=== PATIENT | female | born 1985 | race Caucasian/White ===

== ENCOUNTER 2019-02-13 18:00 | Inpatient (IN) | payer BC, OTHER ==
[~2019-02-13] VITALS: Ht 167.6 cm; Wt 71.4 kg
[~2019-02-13 18:00] MED LIST: NAPR375T PO
[2019-02-13 18:27] LABS: COLOR,URINE YELLOW (Yellow); GLUCOSE, URINE NEGATIVE (Neg); KETONES,URINE NEGATIVE (Neg); LEUKOCYTE ESTERASE ,URINE NEGATIVE (Neg); NITRITES, URINE NEGATIVE (Neg); OCCULT BLOOD,URINE LARGE (Neg); PROTEIN,URINE 100 mg/dl (Neg); UROBILINOGEN,URINE 0.2 E.U/dL (0.2-1.0)
[2019-02-13 18:29] LABS: CLARITY,URINE SLIGHTLY CLOUDY (Clear); UA COLLECTION TYPE VOIDED
[2019-02-13 18:36] LABS: BACTERIA,URINE 1+ /HPF (Neg); HYALINE CASTS 0-3 /LPF (NEGATIVE); MUCUS STRANDS MODERATE /LPF (Neg); RBC,URINE 0-2 /HPF (0-2); SQUAMOUS EPITHELIAL CELL,UR MODERATE /LPF (FEW); WBC,URINE 0-4 /HPF (0-4)
[2019-02-13 18:40] LABS: BASOPHILS % (AUTO) 0.3 % (0-1); EOSINOPHILS # (AUTO) 0.1 X10'3 (0-0.9); EOSINOPHILS % (AUTO) 0.3 % (0-6); HEMATOCRIT 44.6 % (35.0-45.0); LYMPHOCYTES # (AUTO) 1.3 X10'3 (1.1-4.8); LYMPHOCYTES % (AUTO) 8.1 % (21-51); MEAN CORPUSCULAR HGB CONC 33.6 g/dL (33.0-36.5); MEAN CORPUSCULAR VOLUME 86.6 FL (78-98); MEAN PLATELET VOLUME 9.3 FL (7.4-10.4); MONOCYTES % (AUTO) 6.3 % (2-12); NEUTROPHILS # (AUTO) 13.5 X10'3 (1.8-7.7); PLATELET COUNT 235 X10'3 (140-440); RED BLOOD COUNT 5.15 X10'6 (4.20-5.60); RED CELL DISTRIBUTION WIDTH 13.1 % (11.5-14.5); WHITE BLOOD COUNT 15.9 X10'3 (4.5-11.0)
[2019-02-13 18:42] LABS: URINE HCG NEGATIVE (NEG)
[2019-02-13 18:52] LABS: INR 1.1 INR
[2019-02-13 18:54] LABS: ALANINE AMINOTRANSFERASE 63 U/L (12-78); ALBUMIN 3.6 G/DL (3.4-5.0); ALBUMIN/GLOBULIN RATIO 0.9 (1.1-1.5); ALKALINE PHOSPHATASE 150 IU/L (46-116); ANION GAP 9 (8-16); ASPARTATE AMINO TRANSFERASE 28 U/L (10-37); BILIRUBIN,TOTAL 0.5 MG/DL (0.1-1.0); BLOOD UREA NITROGEN 7 MG/DL (7-18); BUN/CREATININE RATIO 8.6 (6.6-38.0); CALCIUM 8.9 MG/DL (8.5-10.1); CHLORIDE 101 MMOL/L (99-107); CREATININE 0.81 MG/DL (0.40-0.90); GLUCOSE 104 MG/DL (70-104); SODIUM 136 MMOL/L (135-145); TOTAL CARBON DIOXIDE 26.2 MMOL/L (24-32); TOTAL PROTEIN 7.6 G/DL (6.4-8.2); eGFR 81 ML/MIN
[2019-02-13] MEDS ORDERED: acetaminophen 325mg tablet PO ONE (19:00)
[2019-02-13 19:03] LABS: POTASSIUM 2.8 MMOL/L (3.5-5.1)
[2019-02-13 19:12] LABS: TOTAL CELLS COUNTED 100
[2019-02-13 19:13] LABS: PLATELET ESTIMATE NORMAL
[2019-02-13] MEDS ORDERED: normal saline 1000ML IV soln IVB ONE ×2 (20:00→21:50)
[2019-02-13] MEDS ORDERED: potassium 10mEq/100ml NS w/LIDOcaine (10mg/bag) IV ONE ×2 (20:05→21:50)
[2019-02-13] MEDS ORDERED: magnesium 2GM in 50ml NS 50 ML IV ONE (20:05)
[2019-02-13] MEDS ORDERED: potassium Cl 20 mEq SR tablet PO ONE (20:05)
[2019-02-13 20:43] LABS: MAGNESIUM 1.6 MG/DL (1.5-2.4)
[2019-02-13] MEDS ORDERED: temazepam 15mg capsule PO PRN (21:00)
[2019-02-13] MEDS ORDERED: piperacillin/tazo 3.375gm/50ml 50 ML IV ONE (21:45)
[2019-02-13] MEDS ORDERED: HYDR25LI (22:06)
[2019-02-13] MEDS ORDERED: HYDR12.5 PO (22:06)
--- NOTE | 2019-02-13 22:08 | NUR ---
POTASSIUM IS NOT SCANNABLE.
[2019-02-13] MEDS ORDERED: metroNIDAZOLE-Flagyl 500mg/NS 100 ML IV ONE (22:20)
[2019-02-13] MEDS ORDERED: magnesium 4gm in 100ml NS 100 ML IV PRN (23:00)
[2019-02-13] MEDS ORDERED: mag hydrox/Alum hydrox/simeth 30ml oral suspension PO PRN (23:00)
[2019-02-13] MEDS ORDERED: potassium Cl 40MEQ/NS 500ml 500 ML IV PRN ×2 (23:00)
[2019-02-13] MEDS ORDERED: HYDROcodone/acetaminophen 5mg/325mg tablet PO PRN (23:00)
[2019-02-13] MEDS ORDERED: potassium Cl 20 mEq SR tablet PO PRN (23:00)
[2019-02-13] MEDS ORDERED: magnesium Cl slow-release 64mg tablet PO PRN (23:00)
[2019-02-13] MEDS ORDERED: magnesium hydroxide 30ml (MOM) UD suspension PO PRN (23:00)
[2019-02-13] MEDS ORDERED: acetaminophen 325mg tablet PO PRN (23:00)
[2019-02-13] MEDS ORDERED: magnesium 2GM in 50ml NS 50 ML IV PRN (23:00)
[2019-02-13] MEDS ORDERED: ondansetron/PF 4mg/2ml inj IV PRN (23:00)
[2019-02-14 00:30] VITALS: BP 135/88
--- NOTE | 2019-02-14 00:30 | NUR ---
Received report from Maria Del Rosario CAPUTO from ED. Patient received via [facility]. Bed locked & low, call light within reach.
[2019-02-14] MEDS: potassium Cl 20 mEq SR tablet PO PRN ×2 (00:43→04:13)
[2019-02-14] MEDS: acetaminophen 325mg tablet PO PRN ×2 (00:43→07:24)
[2019-02-14] MEDS: normal saline 1000ml 1,000 ML IV SCH ×4 (00:44→23:12)
[2019-02-14 05:00] VITALS: BP 116/65
--- NOTE | 2019-02-14 06:10 | NUR ---
Problems reprioritized. Patient report given, questions answered & plan of care reviewed with Linnea CAPUTO.
[2019-02-14] MEDS: metroNIDAZOLE-Flagyl 500mg/NS 100 ML IV SCH ×3 (07:25→16:02)
[2019-02-14] MEDS: HYDROchlorothiazide 12.5mg capsule PO SCH (07:25)
[2019-02-14 07:37] LABS: BASOPHILS % (AUTO) 0.2 % (0-1); EOSINOPHILS % (AUTO) 0.1 % (0-6); HEMATOCRIT 40.5 % (35.0-45.0); HEMOGLOBIN 13.6 g/dl (12.0-16.0); LYMPHOCYTES # (AUTO) 1.1 X10'3 (1.1-4.8); LYMPHOCYTES % (AUTO) 8.4 % (21-51); MEAN CORPUSCULAR HEMOGLOBIN 29.5 PG (27.0-31.0); MEAN CORPUSCULAR HGB CONC 33.6 g/dL (33.0-36.5); MEAN CORPUSCULAR VOLUME 87.6 FL (78-98); MEAN PLATELET VOLUME 9.3 FL (7.4-10.4); MONOCYTES # (AUTO) 0.8 X10'3 (0-0.9); MONOCYTES % (AUTO) 6.1 % (2-12); NEUTROPHILS % (AUTO) 85.2 % (42-75); PLATELET COUNT 199 X10'3 (140-440); RED BLOOD COUNT 4.63 X10'6 (4.20-5.60); RED CELL DISTRIBUTION WIDTH 13.4 % (11.5-14.5); WHITE BLOOD COUNT 12.9 X10'3 (4.5-11.0)
[2019-02-14 07:52] LABS: ALBUMIN 2.9 G/DL (3.4-5.0); ANION GAP 9 (8-16); BLOOD UREA NITROGEN 4 MG/DL (7-18); BUN/CREATININE RATIO 5.6 (6.6-38.0); CALCIUM 8.4 MG/DL (8.5-10.1); CHLORIDE 106 MMOL/L (99-107); CREATININE 0.72 MG/DL (0.40-0.90); GLUCOSE 111 MG/DL (70-104); POTASSIUM 3.9 MMOL/L (3.5-5.1); SODIUM 138 MMOL/L (135-145); TOTAL CARBON DIOXIDE 23.4 MMOL/L (24-32); eGFR > 90 ML/MIN
[2019-02-14 07:59] LABS: MAGNESIUM 1.9 MG/DL (1.5-2.4)
[2019-02-14] MEDS: K and/or MAG REPLACEMENT MC SCH (08:00)
[2019-02-14] MEDS: levoFLOXACIN-Levaquin 500mg/D5 100 ML IV SCH (08:54)
[2019-02-14 10:00] VITALS: BP 98/46
[2019-02-14 10:01] LABS: C DIFF ANTIGEN NEGATIVE (NEGATIVE); C DIFF SPECIMEN=DIARRHEA? ACCEPTABLE; C DIFFICILE TOXINS A&B NEGATIVE (Neg)
[2019-02-14 19:20] VITALS: BP 105/59
[2019-02-14] MEDS: lactobacillus rhamnosus 10,000 MMU CELLS/CAPSULE PO SCH (20:02)
[2019-02-14 23:00] VITALS: BP 102/62
[2019-02-15] MEDS: metroNIDAZOLE-Flagyl 500mg/NS 100 ML IV SCH ×2 (00:08→07:55)
--- NOTE | 2019-02-15 04:59 | NUR ---
PT IS VOIDING NORMALLY AND STILL HAVING LOOSE BM'S Addendum: 02/15/19 at 0500 by Israel Huber RN Amended: Links added.
[2019-02-15 05:22] LABS: BASOPHILS % (AUTO) 0.3 % (0-1); EOSINOPHILS # (AUTO) 0.4 X10'3 (0-0.9); EOSINOPHILS % (AUTO) 4.3 % (0-6); HEMATOCRIT 36.7 % (35.0-45.0); HEMOGLOBIN 12.3 g/dl (12.0-16.0); LYMPHOCYTES # (AUTO) 2.4 X10'3 (1.1-4.8); LYMPHOCYTES % (AUTO) 27.6 % (21-51); MEAN CORPUSCULAR HEMOGLOBIN 29.4 PG (27.0-31.0); MEAN CORPUSCULAR HGB CONC 33.7 g/dL (33.0-36.5); MEAN CORPUSCULAR VOLUME 87.4 FL (78-98); MEAN PLATELET VOLUME 9.4 FL (7.4-10.4); MONOCYTES # (AUTO) 0.8 X10'3 (0-0.9); NEUTROPHILS % (AUTO) 58.8 % (42-75); PLATELET COUNT 183 X10'3 (140-440); RED BLOOD COUNT 4.19 X10'6 (4.20-5.60); WHITE BLOOD COUNT 8.5 X10'3 (4.5-11.0)
[2019-02-15 05:35] LABS: ALBUMIN 2.6 G/DL (3.4-5.0); ANION GAP 7 (8-16); BLOOD UREA NITROGEN 5 MG/DL (7-18); BUN/CREATININE RATIO 6.9 (6.6-38.0); CALCIUM 8.5 MG/DL (8.5-10.1); CHLORIDE 112 MMOL/L (99-107); CREATININE 0.72 MG/DL (0.40-0.90); GLUCOSE 102 MG/DL (70-104); MAGNESIUM 1.9 MG/DL (1.5-2.4); POTASSIUM 3.8 MMOL/L (3.5-5.1); SODIUM 142 MMOL/L (135-145); TOTAL CARBON DIOXIDE 23.3 MMOL/L (24-32); eGFR > 90 ML/MIN
--- NOTE | 2019-02-15 06:28 | NUR ---
Problems reprioritized. Patient report given, questions answered & plan of care reviewed with NATALIE PEREZ RN. Addendum: 02/15/19 at 0628 by Israel Huber RN Amended: Links added.
--- NOTE | 2019-02-15 06:43 | NUR ---
RECEIVED REPORT FROM MARTA CAPUTO
[2019-02-15 06:56] VITALS: BP 101/56
[2019-02-15] MEDS: HYDROchlorothiazide 12.5mg capsule PO SCH (07:52)
[2019-02-15] MEDS: lactobacillus rhamnosus 10,000 MMU CELLS/CAPSULE PO SCH (07:54)
[2019-02-15] MEDS: K and/or MAG REPLACEMENT MC SCH (08:00)
[2019-02-15] MEDS: levoFLOXACIN-Levaquin 500mg/D5 100 ML IV SCH (09:15)
[2019-02-15] MEDS ORDERED: METR-159 PO (10:09)
[2019-02-15] MEDS ORDERED: CIPR-230 PO (10:09)
--- NOTE | 2019-02-15 11:27 | NUR ---
patient was discharged Iv and tele was removed from patient. Patient was alert and oriented at time of discharge. patient was following up with dr. hamilton.
== END 2019-02-15 11:20 | disposition home or self-care (01) | DRG 373 ==
LOC: ER 18:02 → ORTHO 4S 02-14 00:38 → CMPBEDREQ 02-14 00:47
PROVIDERS: ADMIT Hospitalist; ATTEND Internal Medicine
DX: A04.9 Bacterial intestinal infection, unspecified (principal); E87.6 Hypokalemia; K59.00 Constipation, unspecified; Z79.899 Other long term (current) drug therapy; Z87.442 Personal history of urinary calculi
CPT/HCPCS: 36415; 74176; 80048; 80053; 81001; 81025; 83605; 83735; 85025; 85610; 87040; 87070; 87324; 87449; 96365; 96367; 99285; G0378; J1956; J2543; J3475; J3480; J3490; J7030

== ENCOUNTER 2019-11-27 02:29 | Emergency (ER) | payer BC ==
[~2019-11-27] VITALS: Ht 167.6 cm; Wt 69.5 kg
[~2019-11-27 02:29] MED LIST changes: +HYDR12.5 PO; -NAPR375T PO
[2019-11-27] MEDS ORDERED: morphine 4 MG/ML inj SYRINge IV PRN (02:50)
[2019-11-27] MEDS ORDERED: normal saline 1000ML IV soln IVB ONE ×2 (02:50→04:55)
[2019-11-27] MEDS ORDERED: ondansetron/PF 4mg/2ml inj IV ONE (02:50)
--- NOTE | 2019-11-27 03:12 | NUR ---
pt doesn't want morphine right now. just got back from a diarrhea episode
[2019-11-27 03:47] LABS: ALANINE AMINOTRANSFERASE 43 U/L (12-78); ALBUMIN 3.9 G/DL (3.4-5.0); ALBUMIN/GLOBULIN RATIO 1.1 (1.1-1.5); ALKALINE PHOSPHATASE 62 IU/L (46-116); ANION GAP 11 (8-16); ASPARTATE AMINO TRANSFERASE 34 U/L (10-37); BILIRUBIN,TOTAL 0.4 MG/DL (0.1-1.0); BLOOD UREA NITROGEN 7 MG/DL (7-18); BUN/CREATININE RATIO 9.9 (6.6-38.0); CALCIUM 8.7 MG/DL (8.5-10.1); CHLORIDE 106 MMOL/L (99-107); CREATININE 0.71 MG/DL (0.40-0.90); GLUCOSE 123 MG/DL (70-104); LIPASE 126 U/L (73-393); MAGNESIUM 1.6 MG/DL (1.5-2.4); PHOSPHORUS 2.2 MG/DL (2.3-4.5); POTASSIUM 3.1 MMOL/L (3.5-5.1); SODIUM 138 MMOL/L (135-145); TOTAL CARBON DIOXIDE 20.9 MMOL/L (24-32); TOTAL PROTEIN 7.5 G/DL (6.4-8.2); eGFR > 90 ML/MIN
[2019-11-27 03:54] LABS: BASOPHILS % (AUTO) 0.3 % (0-1); EOSINOPHILS # (AUTO) 0.1 X10'3 (0-0.9); EOSINOPHILS % (AUTO) 1.2 % (0-6); HEMATOCRIT 43.4 % (35.0-45.0); HEMOGLOBIN 14.9 g/dl (12.0-16.0); LYMPHOCYTES # (AUTO) 0.4 X10'3 (1.1-4.8); LYMPHOCYTES % (AUTO) 4.5 % (21-51); MEAN CORPUSCULAR HEMOGLOBIN 29.6 PG (27.0-31.0); MEAN CORPUSCULAR HGB CONC 34.2 g/dL (33.0-36.5); MEAN CORPUSCULAR VOLUME 86.4 FL (78-98); MEAN PLATELET VOLUME 9.4 FL (7.4-10.4); MONOCYTES # (AUTO) 0.7 X10'3 (0-0.9); MONOCYTES % (AUTO) 7.1 % (2-12); NEUTROPHILS # (AUTO) 8.1 X10'3 (1.8-7.7); NEUTROPHILS % (AUTO) 86.9 % (42-75); PLATELET COUNT 176 X10'3 (140-440); RED BLOOD COUNT 5.03 X10'6 (4.20-5.60); RED CELL DISTRIBUTION WIDTH 13.2 % (11.5-14.5); WHITE BLOOD COUNT 9.4 X10'3 (4.5-11.0)
[2019-11-27] MEDS ORDERED: potassium Cl 20 mEq SR tablet PO ONE (04:10)
[2019-11-27] MEDS ORDERED: loperamide 2mg capsule PO ONE (04:15)
[2019-11-27 04:36] LABS: CLARITY,URINE CLEAR (Clear); COLOR,URINE YELLOW (Yellow); GLUCOSE, URINE NEGATIVE (Neg); KETONES,URINE NEGATIVE (Neg); LEUKOCYTE ESTERASE ,URINE NEGATIVE (Neg); NITRITES, URINE POSITIVE (Neg); OCCULT BLOOD,URINE NEGATIVE (Neg); PROTEIN,URINE NEGATIVE (Neg); UROBILINOGEN,URINE 0.2 E.U/dL (0.2-1.0)
[2019-11-27 04:38] LABS: UA COLLECTION TYPE CLN CATCH MIDSTREAM
[2019-11-27 05:25] LABS: BACTERIA,URINE 2+ /HPF (Neg); MUCUS STRANDS NONE SEEN /LPF (Neg); RBC,URINE NONE SEEN /HPF (0-2); SQUAMOUS EPITHELIAL CELL,UR FEW /LPF (FEW)
[2019-11-27 05:26] LABS: WBC CLUMPS,URINE MODERATE /HPF (NEGATIVE)
[2019-11-27] MEDS ORDERED: CIPR-230 PO (05:28)
[2019-11-27] MEDS ORDERED: METR-159 PO (05:28)
[2019-11-27] MEDS ORDERED: metroNIDAZOLE 500mg tablet PO STA (05:36)
[2019-11-27] MEDS ORDERED: ciprofloxacin 250mg tablet PO STA (05:36)
[2019-11-27 05:42] VITALS: BP 125/70
== END 2019-11-27 05:46 | disposition home or self-care (01) ==
LOC: ER 02:30
DX: R19.7 Diarrhea, unspecified (principal); R10.84 Generalized abdominal pain; Z87.442 Personal history of urinary calculi; Z98.890 Other specified postprocedural states; Z90.89 Acquired absence of other organs; Z79.899 Other long term (current) drug therapy
CPT/HCPCS: 36415; 80053; 81001; 83690; 83735; 84100; 85025; 87077; 87088; 87186; 96361; 96374; 99284; J2405; J7030; J3490